=== PATIENT | female | born 1985 | race Caucasian/White ===

== ENCOUNTER 2024-06-24 16:31 | Emergency (ER) | payer OTHER ==
[2024-06-24] MEDS ORDERED: Morphine 4 MG/ML VIAL ONE (19:57)
[2024-06-24] MEDS ORDERED: Ketorolac Tromethamine 30 MG (1 mL) VIAL ONE (19:57)
== END 2024-06-24 21:02 | disposition home or self-care (01) ==
LOC: CSHERS 16:31
DX: M54.50 Low back pain, unspecified (principal)
CPT/HCPCS: 72100; 96372; 96374; J1885; J2272

== ENCOUNTER 2025-04-26 23:57 | Emergency (ER) | payer OTHER ==
[2025-04-27] MEDS ORDERED: Dexamethasone 10 MG/ML VIAL ONE (00:36)
[2025-04-27] MEDS ORDERED: Orphenadrine Citrate 60 MG/2 ML VIAL ONE (00:45)
[2025-04-27] MEDS ORDERED: Ondansetron PF 4 MG/2 ML Vial ONE (01:16)
== END 2025-04-27 01:30 | disposition home or self-care (01) ==
LOC: CSHERS 23:57
DX: M54.50 Low back pain, unspecified (principal); F17.290 Nicotine dependence, other tobacco product, uncomplicated; W18.30XA Fall on same level, unspecified, initial encounter
CPT/HCPCS: 72131; 96374; 96375; J1100; J2360; J2405

== ENCOUNTER 2025-05-30 03:34 | Emergency (ER) | payer OTHER | END 2025-05-30 04:22 | disposition home or self-care (01) | LOC: CSHERS 03:34 | DX: B08.5 Enteroviral vesicular pharyngitis (principal); F17.290 Nicotine dependence, other tobacco product, uncomplicated | CPT/HCPCS: 87081; 87430; 99283 ==